=== PATIENT | female | born 1980 | race Caucasian/White ===

== ENCOUNTER 2022-08-03 11:27 | Emergency (ER) | payer BC, SELFPAY ==
[~2022-08-03] VITALS: Ht 162.6 cm; Wt 67.7 kg
[2022-08-03] MEDS ORDERED: METOCLOPRAMIDE INJ 10MG/2ML VIAL IV ONE (12:25)
[2022-08-03 12:36] LABS: BASO % 0.5 % (0.0-1.0); EOS # 0.1 10^3/uL (0.0-0.5); HEMATOCRIT 42.9 % (36.0-47.0); LYMPH # 1.7 10^3/uL (1.5-5.0); LYMPH % 28.7 % (24.0-44.0); MEAN CORPUSCULAR HGB CONC 32.6 g/dl (32.0-36.5); MONO # 0.5 10^3/uL (0.0-0.8); MONO % 7.4 % (2.0-8.0); NEUTROPHILS # 3.8 10^3/uL (1.5-8.5); NEUTROPHILS % 62.2 % (36.0-66.0); PLATELET COUNT, AUTOMATED 239 10^3/uL (150-450); RED BLOOD COUNT 4.82 10^6/uL (4.00-5.40); WHITE BLOOD COUNT 6.1 10^3/uL (4.0-10.0)
[2022-08-03 12:47] LABS: INR 0.99; PARTIAL THROMBOPLASTIN TIME 27.4 SECONDS (24.8-34.2); PROTHROMBIN TIME 13.3 SECONDS (12.5-14.5)
[2022-08-03 13:12] LABS: LIPASE 39 U/L (12-53)
[2022-08-03 13:14] LABS: ALBUMIN 4.3 G/DL (3.2-5.2); ALKALINE PHOSPHATASE 93 U/L (46-116); ALT/SGPT 17 U/L (7.0-40); AST/SGOT 20 U/L (<34); BILIRUBIN,DIRECT 0.2 MG/DL (<0.4); BILIRUBIN,TOTAL 0.7 MG/DL (0.3-1.2); BLOOD UREA NITROGEN 18 MG/DL (9-23); CALCIUM LEVEL 9.9 MG/DL (8.5-10.1); CARBON DIOXIDE LEVEL 24 MMOL/L (20-31); CHLORIDE LEVEL 105 MMOL/L (98-107); CK-MB VALUE MASS < 1.0 NG/ML (<3.6); CPK CREATINE PHOSPHOKINASE 72 U/L (34-145); CREATININE FOR GFR 0.81 MG/DL (0.55-1.30); GLOMERULAR FILTRATION RATE > 60.0 (>58); GLUCOSE, FASTING 82 MG/DL (60-100); MB/CK RELATIVE INDEX 1.38 (< OR =4); POTASSIUM SERUM 4.2 MMOL/L (3.5-5.1); SODIUM LEVEL 139 MMOL/L (136-145); TOTAL PROTEIN 7.7 G/DL (5.7-8.2)
[2022-08-03 13:16] LABS: FREE T4 1.28 NG/DL (0.89-1.76); THYROID STIMULATING HORMONE 2.921 uIU/ML (0.55-4.78)
[2022-08-03] MEDS ORDERED: ISOVUE-370 76% 100ML VIAL As Ordered ONE (13:18)
[2022-08-03 13:45] LABS: RSV AMPLIFICATION NEGATIVE (NEGATIVE)
[2022-08-03 14:14] LABS: CK-MB VALUE MASS < 1.0 NG/ML (<3.6)
[2022-08-03 14:15] LABS: CPK CREATINE PHOSPHOKINASE 58 U/L (34-145); MB/CK RELATIVE INDEX 1.72 (< OR =4)
[2022-08-03 14:43] VITALS: BP 128/74
== END 2022-08-03 14:44 | disposition left against medical advice (07) ==
LOC: M ED 11:27
DX: R51.9 Headache, unspecified (principal); Z53.20 Procedure and treatment not carried out because of patient's decision for unspecified reasons; R07.9 Chest pain, unspecified; I25.2 Old myocardial infarction; D64.9 Anemia, unspecified; Z98.84 Bariatric surgery status; M50.222 Other cervical disc displacement at C5-C6 level; Z88.5 Allergy status to narcotic agent

== ENCOUNTER → 2023-02-11 | Outpatient (CLI) | payer BC ==
[2023-02-11 11:44] LABS: BASO % 0.4 % (0.0-1.0); EOS # 0.1 10^3/uL (0.0-0.5); EOS % 2.2 % (0.0-3.0); HEMATOCRIT 35.8 % (36.0-47.0); HEMOGLOBIN 11.5 g/dl (12.0-15.5); LYMPH # 1.5 10^3/uL (1.5-5.0); LYMPH % 30.6 % (24.0-44.0); MEAN CORPUSCULAR HEMOGLOBIN 28.5 pg (27.0-33.0); MEAN CORPUSCULAR HGB CONC 32.1 g/dl (32.0-36.5); MEAN CORPUSCULAR VOLUME 88.6 fl (80.0-96.0); MONO # 0.5 10^3/uL (0.0-0.8); NEUTROPHILS # 2.8 10^3/uL (1.5-8.5); NEUTROPHILS % 56.4 % (36.0-66.0); PLATELET COUNT, AUTOMATED 211 10^3/uL (150-450); RED BLOOD COUNT 4.04 10^6/uL (4.00-5.40)
[2023-02-11 12:06] LABS: TOTAL IRON BINDING CAPACITY 407 UG/DL (250-425)
[2023-02-11 12:07] LABS: ALBUMIN 3.5 G/DL (3.2-5.2); ALKALINE PHOSPHATASE 87 U/L (46-116); ALT/SGPT 11 U/L (7.0-40); AST/SGOT 11 U/L (<34); BILIRUBIN,TOTAL 0.7 MG/DL (0.3-1.2); BLOOD UREA NITROGEN 9 MG/DL (9-23); CALCIUM LEVEL 8.6 MG/DL (8.5-10.1); CARBON DIOXIDE LEVEL 25 MMOL/L (20-31); CHLORIDE LEVEL 108 MMOL/L (98-107); CHOLESTEROL LEVEL 117 MG/DL (<200); CHOLESTEROL RISK RATIO 2.46 (<5); CREATININE FOR GFR 0.81 MG/DL (0.55-1.30); FERRITIN 5.3 NG/ML (7.3-270.7); FOLATE 10.72 NG/ML (>5.4); GLOMERULAR FILTRATION RATE > 60.0 (>58); GLUCOSE, FASTING 79 MG/DL (60-100); HDL CHOLESTEROL 47.5 MG/DL (>40); IRON (FE) 58 UG/DL (50-170); LDL CHOLESTEROL 58.9 MG/DL (<100); NON-HDL-C 69.5 MG/DL; PERCENT SATURATION 14.3 % (13.2-45.0); POTASSIUM SERUM 3.9 MMOL/L (3.5-5.1); SODIUM LEVEL 137 MMOL/L (136-145); TOTAL PROTEIN 6.2 G/DL (5.7-8.2); TRIGLYCERIDES LEVEL 53 MG/DL (<150); VITAMIN B12 LEVEL 299 PG/ML (211-911)
== END ==
LOC: M WUC 08:19
PROVIDERS: ATTEND Student in an Organized Health Care Education/Training Program
DX: D64.9 Anemia, unspecified (principal); E53.8 Deficiency of other specified B group vitamins; I25.10 Atherosclerotic heart disease of native coronary artery without angina pectoris

== ENCOUNTER → 2023-03-20 | Outpatient (CLI) | payer BC ==
[~2023-03-20] MED LIST: BIOT2500 PO; IRON65TA2 PO; MAGNESIUM CALCIUM PA; VITA1CAP25 PO
== END ==
LOC: M WHC 08:00
PROVIDERS: ATTEND Student in an Organized Health Care Education/Training Program
DX: R92.2 Inconclusive mammogram (principal)
CPT/HCPCS: 77065; G0279

== ENCOUNTER → 2023-05-28 | Outpatient (CLI) | payer BC ==
[~2023-05-28] MED LIST changes: +CYAN1000VL
== END ==
LOC: M WUC 09:03
PROVIDERS: ATTEND Student in an Organized Health Care Education/Training Program
DX: M79.671 Pain in right foot (principal)

== ENCOUNTER 2023-08-14 12:15 | Day surgery (SDC) | payer OTHER, SELFPAY ==
[~2023-08-14] VITALS: Ht 162.6 cm; Wt 70.6 kg
[~2023-08-14 12:15] MED LIST changes: -CYAN1000VL; +CYAN1000VL SC; +NS 1,000 ML IV ONE; +PANT40TA29 PO
[2023-08-14] MEDS ORDERED: LIDOCAINE 2% 100MG/5ML SDV (FOR ANES.) As Ordered ONE (13:59)
[2023-08-14] MEDS ORDERED: propofoL 200 MG/20 ML VIAL As Ordered ONE (13:59)
[2023-08-14] MEDS ORDERED: fentaNYL 100 MCG/2 ML INJECTION As Ordered ONE (14:00)
[2023-08-14 14:31] VITALS: BP 118/58; O2SAT 100
== END 2023-08-14 14:40 | disposition home or self-care (01) ==
LOC: M OPP 12:15
PROVIDERS: ATTEND Internal Medicine Gastroenterology
DX: G50.9 Disorder of trigeminal nerve, unspecified (principal); R13.10 Dysphagia, unspecified; Z98.0 Intestinal bypass and anastomosis status; Z86.74 Personal history of sudden cardiac arrest; Z79.899 Other long term (current) drug therapy; Z88.5 Allergy status to narcotic agent
CPT/HCPCS: 43235; J3010

== ENCOUNTER 2024-04-09 20:49 | Emergency (ER) | payer OTHER ==
[~2024-04-09] VITALS: Ht 160 cm; Wt 68.3 kg
[~2024-04-09 20:49] MED LIST changes: +BIOT1CAP2 PO; +CYAN1000VL IM; -NS 1,000 ML IV ONE
[2024-04-09] MEDS ORDERED: GABA-1171 PO (22:25)
[2024-04-09] MEDS ORDERED: VALA1TAB5 PO (22:25)
[2024-04-09] MEDS: GABAPENTIN 100 MG CAP PO ONE (22:34)
[2024-04-09] MEDS: IBUPROFEN 600MG TAB PO ONE (22:34)
[2024-04-09] MEDS: valACYclovir HCL 500 MG TAB PO ONE (22:34)
[2024-04-09 22:39] VITALS: BP 129/72; TEMP 98; O2SAT 100
== END 2024-04-09 22:40 | disposition home or self-care (01) ==
LOC: M ED 20:49
DX: B02.9 Zoster without complications (principal); L40.9 Psoriasis, unspecified; Z98.84 Bariatric surgery status; Z79.899 Other long term (current) drug therapy; Z88.5 Allergy status to narcotic agent

== ENCOUNTER 2024-05-07 17:13 | Emergency (ER) | payer OTHER ==
[~2024-05-07 17:13] MED LIST changes: +GABA-1171 PO; +VALA1TAB5 PO
[2024-05-07] MEDS ORDERED: HYDR-3363 (17:40)
[2024-05-07] MEDS ORDERED: BETA0.0543 (17:40)
[2024-05-07 18:55] LABS: BASO % 0.2 % (0.0-1.0); EOS # 0.1 10^3/uL (0.0-0.5); EOS % 0.9 % (0.0-3.0); HEMATOCRIT 36.1 % (36.0-47.0); HEMOGLOBIN 12.2 g/dl (12.0-15.5); LYMPH # 1.5 10^3/uL (1.5-5.0); LYMPH % 17.8 % (24.0-44.0); MEAN CORPUSCULAR HEMOGLOBIN 31.6 pg (27.0-33.0); MEAN CORPUSCULAR HGB CONC 33.8 g/dl (32.0-36.5); MEAN CORPUSCULAR VOLUME 93.5 fl (80.0-96.0); MONO # 0.6 10^3/uL (0.0-0.8); MONO % 7.4 % (2.0-8.0); NEUTROPHILS % 73.6 % (36.0-66.0); PLATELET COUNT, AUTOMATED 203 10^3/uL (150-450); RED BLOOD COUNT 3.86 10^6/uL (4.00-5.40); WHITE BLOOD COUNT 8.2 10^3/uL (4.0-10.0)
[2024-05-07 19:28] LABS: CK-MB VALUE MASS < 1.0 NG/ML (<3.6)
[2024-05-07 19:29] LABS: CPK CREATINE PHOSPHOKINASE 43 U/L (34-145); MB/CK RELATIVE INDEX 2.32 (< OR =4)
[2024-05-07 19:32] LABS: THYROID STIMULATING HORMONE 2.358 uIU/ML (0.55-4.78)
[2024-05-07 19:35] LABS: BLOOD UREA NITROGEN 14 MG/DL (9-23); CALCIUM LEVEL 7.9 MG/DL (8.5-10.1); CARBON DIOXIDE LEVEL 27 MMOL/L (20-31); CHLORIDE LEVEL 109 MMOL/L (98-107); CREATININE FOR GFR 0.72 MG/DL (0.55-1.30); GLOMERULAR FILTRATION RATE > 60.0 (>58); GLUCOSE, FASTING 225 MG/DL (60-100); SODIUM LEVEL 139 MMOL/L (136-145)
[2024-05-07 20:00] VITALS: BP 112/60; TEMP 96.9; O2SAT 99
== END 2024-05-07 19:59 | disposition home or self-care (01) ==
LOC: M ED 17:13
DX: R55 Syncope and collapse (principal); E16.2 Hypoglycemia, unspecified; Z98.84 Bariatric surgery status; Z79.899 Other long term (current) drug therapy; Z88.5 Allergy status to narcotic agent